=== PATIENT | male | born 1980 | race Hispanic/Latino ===

== ENCOUNTER 2021-10-21 20:27 | Emergency (ER) | payer OTHER, SELFPAY ==
[2021-10-21 20:28] VITALS: BP 155/114; PULSE 77; RESP 18; TEMP 36.6; O2SAT 99; BMI 30.4
--- NOTE | 2021-10-21 21:36 | EKG12_ITS ---
Test Reason : SYNCOPE Blood Pressure : / mmHG Vent. Rate : 061 BPM Atrial Rate : 061 BPM P-R Int : 154 ms QRS Dur : 088 ms QT Int : 408 ms P-R-T Axes : 043 018 -01 degrees QTc Int : 410 ms Normal sinus rhythm Nonspecific T wave abnormality Abnormal ECG Confirmed by SHERLEY DOMINIQUE, ANSON ([id number]), editor news ALEXANDRA PARISH ([id number]) on 10/24/2021 1:26:13 PM Referred By: ESCOBAR Confirmed By:ANSON LEPE MD
[2021-10-21 22:01] VITALS: BP 136/95; BP 142/96; BP 146/94; PULSE 72; PULSE 74; PULSE 80
[2021-10-21 22:27] VITALS: BP 136/95; PULSE 72; RESP 15; O2SAT 97
--- NOTE | 2021-10-21 23:08 | EX.ED.DYSGE1 ---
HPI History of Present Illness Chief Complaint: Syncope Informant: patient and spouse/S.O. Onset/Context/Timing Onset: Today Context: Sudden Onset Current Severity: Gone Maximum Severity: Mild Narrative Narrative: 41-year-old male no sniffing past medical history. No history of cardiac disease. States he and his are watching videos today they were laughing. He got up is laughing he started coughing and he said he felt lightheaded and passed out very briefly. Lasted only seconds. When he fell he fell back on the floor. He denies any injuries. States he felt fine before this happened. Said it only lasted seconds. He had no chest pain or shortness of breath. He has not been recently ill. He said this is never happened before. Prior similar symptoms: No Recent Illness/Hospitalization: No PFSH PFSH Medical History no medical history no medical history Home Medications NK 10/21/21 [History Last Taken Unknown] Allergy/AdvReac Type Severity Reaction Status Date / Time No Known Allergies Allergy Verified 10/21/21 20:30 Social History Smoking Status: Never smoker ROS ROS ED ROS Narrative Denies recent illness. Review of Systems ROS Unobtainable: Denies due to encephalopathy Constitutional Constitutional ED: Denies fever(s) Eyes Eyes: Denies change in vision ENT ENT ED: Denies ear pain Cardiovascular Cardiovascular: Denies chest pain, palpitations or racing heartbeat Respiratory/Chest Respiratory/Chest: Denies dyspnea Gastrointestinal Gastrointestinal: Denies abdominal pain, nausea or vomiting Genitourinary Genitourinary ED: Denies dysuria Musculoskeletal Musculoskeletal: Denies myalgias Integumentary Denies rash Neurologic Neurologic: Denies headache(s) Psychiatric Psychiatric: Denies depression Endocrine Endocrinology: Denies polyuria Allergic/Immunologic Allergic/Immunologic ED: Denies urticaria EXAM Physical Exam Narrative Exam Narrative: Middle-aged male no acute distress. Vital signs are stable and afebrile. H EENT exam unremarkable. Pupils round reactive light. There is no signs of trauma of his face or scalp. Nontender. C-spine nontender. Trachea midline. Is full range of motion to his neck. Lungs clear to auscultation bilaterally. Heart regular rate and rhythm no murmur. Rate about 75. Chest was nontender. Abdomen soft nontender. Moving all 4 extremities. 5-5 analytic manager strength bilaterally. Dorsi plantar flexion intact. Back nontender. Neurologically is awake and alert with no focal motor deficits. Const Vital Signs: 10/21/21 20:28 10/21/21 22:01 10/21/21 22:27 Temperature 97.9 F Temperature Source Temporal Pulse Rate 77 72 Pulse Rate [Lying] 72 Pulse Rate [Sitting] 74 Pulse Rate [Standing] 80 Respiratory Rate 18 15 Blood Pressure 155/114 H 136/95 H Blood Pressure [Lying] 146/94 H Blood Pressure [Sitting] 142/96 H Blood Pressure [Standing] 136/95 H Blood Pressure Mean 127 108 Blood Pressure Mean [Lying] 111 Blood Pressure Mean [Sitting] 111 Blood Pressure Mean [Standing] 108 Pulse Ox 99 97 Oxygen Delivery Method Room Air Room Air Positive well nourished and well developed; Negative for cachectic, contractures or unkempt General Appearance ED: well developed and NAD; Negative for unkempt, cachectic, contractures, cyanotic, diaphoretic or pallor Nutritional Appearance: Negative for cachectic HEENT Reports moist mucous membranes Negative for trauma or tenderness Eyes PERRL and EOMs intact bilaterally General Eye ED: Negative for pale conjunctiva or scleral icterus Neck no lymphadenopathy, supple and no JVD General: Negative for tenderness Chest Wall inspection of chest normal and palpation of chest normal Resp normal respiratory effort and clear to auscultation bilaterally Effort and Inspection: Negative for pain with movement Auscultation: Negative for rales, rhonchi or wheezes Cardio regular rate, regular rhythm, S1 normal heart sound, S2 normal heart sound and no murmurs Rate: Negative for bradycardia or tachycardic Rhythm: Negative for abnormal rhythm GI normal to inspection, nondistended, normoactive bowel sounds, non-tender, non-distended and no masses Inspection: Negative for abdominal distention Auscultation: normoactive bowel sounds Palpation: soft; Negative for tender, guarding or rebound tenderness present Back/Spine no CVA tenderness General Back: Negative for CVA tenderness Cervical Spine: Negative for cervical spine tenderness Thoracic Spine / Upper Back: Negative for thoracic spinal tenderness or paraspinal muscle tenderness Lumbar Spine / Lower Back: Negative for lumbar spinal tenderness Extremity normal to inspection General Extremety ED: Negative for edema or tenderness General Extremity: Negative for edema Neuro oriented x3, CN's II-XII intact bilaterally and no sensory deficits noted Sensorium / Orientation: alert; Negative for orientation impaired, lethargic or stuporous Motor Exam: strength 5/5 throughout Psych mental status grossly normal Appearance: Negative for unkempt Attitude: No agitated Mood & Affect: Negative for depressed, anxious or tearful Skin no rashes or lesions noted and no wounds General Skin Exam: Negative for jaundice or pallor MDM MDM MDM Narrative Medical decision making narrative: 41-year-old male. Was laughing and coughing and had what appears to be a vasovagal episode. Prior to the event since the event he feels fine. He has had no recent illness. He does exertional work and has had no recent chest pain or exertional shortness of breath. Exam is benign. EKG was obtained was unremarkable. His orthostatic vital signs were negative. On repeat exam he is doing well at 11 PM and he will be discharged home. Rhythm Strip Rhythm Strip: Sinus Rhythm Rate: 61 Ectopy: None EKG Initial EKG: Attestation: I personally reviewed and interpreted this EKG as follows: Interpretation: Sinus Rhythm and No Acute Injury Pattern Comments: Normal sinus rhythm rate of 61 no acute signs of TX or ischemia. No dysrhythmia. Discharge Plan Triage Chief Complaint: Syncope ED Provider: Erich Hoyos Dx/Rx/DC Orders Clinical Impression: Vaso vagal episode, Syncope Instructions: ED Fainting, Vagal Reaction Prescriptions: No Action NK RF: 0 Primary Care Provider: Care Physician,No Primary Referrals: Lamine Calderon MD [STAFF PHYSICIAN] - As Needed Care Physician,No Primary [Primary Care Provider] - Activity Restrictions/Additional Instructions: Fainted due to coughing and laughing at the same time. This caused her nerves to fire which lowers her heart rate which lowers her blood pressure which caused her to pass out briefly. Your exam is normal today. Your EKG was unremarkable also. Disposition Disposition: Home, Self Care
[2021-10-21 23:19] VITALS: BP 133/85; PULSE 68; RESP 20; O2SAT 95
== END 2021-10-21 23:20 | disposition home or self-care (01) ==
PROVIDERS: Emergency Provider Emergency Medicine; Visit Provider Emergency Medicine
DX: R55 Syncope and collapse (principal)
CPT/HCPCS: 93005; 99283